=== PATIENT | female | born 1960 ===

== ENCOUNTER 2025-08-20 12:17 | Outpatient (REF) | payer MEDICAID, SELFPAY ==
[2025-08-20 13:12] LABS: Abs Immature Grans 0.02 10^3/uL (0.0-0.06); HCT 39.6 % (36.0-46.0); HGB 13.3 g/dL (11.2-15.7); Immature Grans % 0.2 %; MCH 30.6 pg (27.0-33.0); MCHC 33.6 % (32.0-36.0); MCV 91 fL (80-95); MPV 9.2 fL (8.0-11.0); Platelet Count 395 10^3/uL (130-400); RBC 4.35 10^6/uL (3.93-5.22); RDW 12.2 % (11.7-14.6); RDW-SD 40.5 fL; WBC 8.05 10^3/uL (4.4-10.8)
== END 2025-08-20 12:18 | disposition home or self-care (01) ==
LOC: LBN 12:17
PROVIDERS: PCP Physician Assistant; Visit Provider Internal Medicine Pulmonary Disease
DX: J44.9 Chronic obstructive pulmonary disease, unspecified (principal)
CPT/HCPCS: 85025